=== PATIENT | male | born 1980 | race American Indian/Alaskan Native ===

== ENCOUNTER 2016-04-21 16:42 | Emergency (ER) | payer OTHER ==
[2016-04-21 17:11] VITALS: BP 159/107
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
[2016-04-21] MEDS: MOTRIN PO ONE (22:11)
== END 2016-04-21 22:49 | disposition home or self-care (01) ==
LOC: ED 16:42
DX: S09.90XA Unspecified injury of head, initial encounter (principal); G44.319 Acute post-traumatic headache, not intractable; M79.1 Myalgia; M62.830 Muscle spasm of back; V49.59XA Passenger injured in collision with other motor vehicles in traffic accident, initial encounter; Y93.9 Activity, unspecified; Y92.9 Unspecified place or not applicable; Y99.9 Unspecified external cause status
CPT/HCPCS: 72070; 72100; 99283

== ENCOUNTER 2021-10-24 14:23 | Emergency (ER) | payer SELFPAY ==
[2021-10-24] MEDS ORDERED: KETOROLAC 30 MG/1 ML INJ IM ONE (17:39)
--- NOTE | 2021-10-24 18:08 | XRay Report ---
LUMBAR SPINE 3 VIEWS INDICATION / CLINICAL INFORMATION: back pain. COMPARISON: None available. FINDINGS: VERTEBRAE: No acute fracture. No significant malalignment. Scattered small marginal osteophytes. DISC SPACES / FACET JOINTS:No significant abnormality. PARASPINAL SOFT TISSUES:No significant abnormality. ADDITIONAL FINDINGS: None. IMPRESSION: 1. No acute findings. Signer Name: Yon Rubin MD Signed: 10/24/2021 6:04 PM Workstation Name: [email or web address]
--- NOTE | 2021-10-24 18:27 | Emergency Department Report ---
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 He jumped up and fell landing on his right buttocks. Complains of pain in the LS spine/right side and radiating down his right posterior thigh. This occurred 11 days ago. He has been ambulatory but with pain. No loss of control of his bladder or bowel. No paresthesias or weakness of the lower extremities. He has not noticed any hematuria and denies any abdominal pain. He denies any prior back problems. Severity scale (0 -10): 9 Improves with: none Worsens with: movement - Related Data Previous Rx's Medication Instructions Recorded Last Taken Type Cyclobenzaprine [Flexeril] 10 mg PO TID PRN #15 tablet 04/21/16 Unknown Rx traMADoL [Ultram 50 MG tab] 50 mg PO Q6HR PRN #20 tablet 04/21/16 Unknown Rx Cyclobenzaprine [Flexeril 10 MG 10 mg PO HS PRN #20 tab 10/24/21 Unknown Rx TAB] Ibuprofen [Motrin 600 MG tab] 600 mg PO Q8H PRN #25 tablet 10/24/21 Unknown Rx Allergies Allergy/AdvReac Type Severity Reaction Status Date / Time No Known Allergies Allergy Verified 10/24/21 14:37 ED Review of Systems ROS: Stated complaint: BACK PAIN Other details as noted in HPI Constitutional: denies: chills, fever Eyes: denies: eye pain, eye discharge, vision change ENT: denies: ear pain, throat pain Respiratory: denies: cough, shortness of breath, wheezing Cardiovascular: denies: chest pain, palpitations Endocrine: no symptoms reported Gastrointestinal: denies: abdominal pain, nausea, diarrhea Genitourinary: denies: urgency, dysuria Musculoskeletal: as per HPI. denies: arthralgia Skin: other (No open wounds). denies: rash, lesions Neurological: denies: headache, weakness, numbness, paresthesias Psychiatric: denies: anxiety, depression Hematological/Lymphatic: denies: easy bleeding, easy bruising ED Past Medical Hx - Past Medical History Previous Medical History?: No - Surgical History Past Surgical History?: No - Social History Smoking Status: Never Smoker Substance Use Type: None - Medications Home Medications: Home Medications Medication Instructions Recorded Confirmed Last Taken Type Cyclobenzaprine [Flexeril] 10 mg PO TID PRN #15 tablet 04/21/16 Unknown Rx traMADoL [Ultram 50 MG tab] 50 mg PO Q6HR PRN #20 tablet 04/21/16 Unknown Rx Cyclobenzaprine [Flexeril 10 MG 10 mg PO HS PRN #20 tab 10/24/21 Unknown Rx TAB] Ibuprofen [Motrin 600 MG tab] 600 mg PO Q8H PRN #25 tablet 10/24/21 Unknown Rx ED Physical Exam - General Limitations: No Limitations General appearance: alert, in no apparent distress - Head Head exam: Present: atraumatic, normocephalic - Eye Eye exam: Present: normal appearance, PERRL, EOMI - ENT ENT exam: Present: mucous membranes moist - Neck Neck exam: Present: normal inspection. Absent: tenderness, meningismus - Respiratory Respiratory exam: Present: normal lung sounds bilaterally. Absent: respiratory distress, wheezes - Cardiovascular Cardiovascular Exam: Present: regular rate, normal rhythm. Absent: systolic murmur, diastolic murmur, rubs, gallop - GI/Abdominal GI/Abdominal exam: Present: soft, normal bowel sounds - Rectal Rectal exam: Present: deferred - Extremities Exam Extremities exam: Present: normal inspection - Back Exam Back exam: Present: normal inspection, full ROM, tenderness (Right lumbar paraspinous muscles and sciatic outlet). Absent: CVA tenderness (R), CVA tenderness (L) - Neurological Exam Neurological exam: Present: alert, oriented X3, CN II-XII intact, abnormal gait (Antalgic), reflexes normal. Absent: motor sensory deficit - Psychiatric Psychiatric exam: Present: normal affect, normal mood - Skin Skin exam: Present: warm, dry, intact, normal color. Absent: rash ED Course Vital Signs 10/24/21 10/24/21 14:39 19:49 Temperature 97.2 F L Pulse Rate 81 61 Respiratory 18 16 Rate Blood Pressure 182/93 Blood Pressure 141/91 [Left] O2 Sat by Pulse 99 98 Oximetry ED Medical Decision Making - Radiology Data Radiology results: report reviewed, image reviewed [facility] [address] [place] [address] XRay Report Signed Patient: MICHAEL SAVAGE MR#: [id number] : 1980 Acct:[id number] Age/Sex: 41 / M ADM Date: 10/24/21 Loc: ED Attending Dr: Ordering Physician: MADINA CUNHA Date of Service: 10/24/21 Procedure(s): XR spine lumbosacral 2-3V Accession Number(s): [id number] cc: MADINA CUNHA Fluoro Time In Minutes: LUMBAR SPINE 3 VIEWS INDICATION / CLINICAL INFORMATION: back pain. COMPARISON: None available. FINDINGS: VERTEBRAE: No acute fracture. No significant malalignment. Scattered small marginal osteophytes. DISC SPACES / FACET JOINTS:No significant abnormality. PARASPINAL SOFT TISSUES:No significant abnormality. ADDITIONAL FINDINGS: None. IMPRESSION: 1. No acute findings. Signer Name: Iram Amado MD Signed: 10/24/2021 6:04 PM Workstation Name: [email or web address] Transcribed By: RV Dictated By: IRAM AMADO MD Electronically Authenticated By: IRAM AMADO MD Signed Date/Time: 10/24/211803 DD/ 02 TD/TT: Print - Medical Decision Making Patient is a 41-year-old male with no prior history of back pain who fell 11 days ago and the following day noticed pain in his back that has continued and is now radiating down his posterior thigh. He has been ambulatory but became concerned when the pain was not getting any better. Denies any abdominal or flank pain. No hematuria. No paresthesias or weakness. No incontinence of bladder or bowel. Likely strain/contusion will treat with muscle relaxers and anti-inflammatories and follow-up with primary care. Critical care attestation.: If time is entered above; I have spent that time in minutes in the direct care of this critically ill patient, excluding procedure time. ED Disposition Clinical Impression: Lumbar strain Disposition: 01 HOME / SELF CARE / HOMELESS Is pt being admited?: No Condition: Stable Instructions: Lumbar Sprain Additional Instructions: Ice alternating with heat 15-minute intervals. Anti-inflammatories. Muscle relaxers. Follow-up with primary care if not significantly improved in 3 to 5 days. Prescriptions: Cyclobenzaprine [Flexeril 10 MG TAB] 10 mg PO HS PRN #20 tab PRN Reason: Spasms Ibuprofen [Motrin 600 MG tab] 600 mg PO Q8H PRN #25 tablet PRN Reason: Pain Referrals: SHAWNA WARD MD [Staff Physician] - 3-5 Days Forms: Work/School Release Form(ED) Time of Disposition: 19:34
[2021-10-24 19:12] LABS: Mucus,Urine FEW /HPF; WBC,Urine < 1.0 /HPF (0.0-6.0)
[2021-10-24 19:13] LABS: Color,Urine Yellow (Yellow)
[2021-10-24 19:50] VITALS: BP 141/91
== END 2021-10-24 20:33 | disposition home or self-care (01) ==
LOC: ED 14:23
DX: S39.012A Strain of muscle, fascia and tendon of lower back, initial encounter (principal); X58.XXXA Exposure to other specified factors, initial encounter; Y93.89 Activity, other specified; Y92.89 Other specified places as the place of occurrence of the external cause; Y99.8 Other external cause status
CPT/HCPCS: 72100; 81001; 96372; 99283; J1885